=== PATIENT | male | born 1930 | race Caucasian/White ===

== ENCOUNTER 2016-12-10 13:14 | Emergency (ER) | payer OTHER ==
--- NOTE | 2016-12-10 15:50 | DIAGNOSTIC IMAGING REPORT ---
PROCEDURE: XR ABDOMEN 1 VIEW UPRIGHT INDICATION: CONSTIPATION TECHNIQUE: Single view upright abdomen. COMPARISON: None. FINDINGS: No obvious free air. Increased stool throughout the colon. No dilated small bowel loops visible. Surgical clips in the gallbladder fossa. No suspicious mass effect. Intact osseous structures. Clear lung bases. IMPRESSION: 1. Retained stool. 2. Post cholecystectomy.
--- NOTE | 2016-12-10 16:16 | ED ORDER SUMMARY ---
..... Patient: MALATHI LOGAN OrderSheet [facility] VisitID: [id number] [place] [address] 86y, M Registration Date/Time: 12/10/2016 ORDER SHEET Weight: 104.3 kg (stated) Allergies: No Known Drug Allergy GENERAL ORDERS: EKG - ER Stat (13:35 12/10/2016 ASchmuck per protocol) (13:42 PWeiler ER Tech1) CBC w Diff Urgent (13:49 12/10/2016 ASchmuck per protocol) (14:03 PWeiler ER Tech1) CMP Urgent (13:49 12/10/2016 ASchmuck per protocol) (14:03 PWeiler ER Tech1) Abdomen 1V Upright Urgent (14:02 12/10/2016 HBivens A.R.N.P.) (Ack 14:04 PWeiler ER Tech1) (15:01 ASchmuck) Amylase Urgent (14:02 12/10/2016 HBivens A.R.N.P.) (14:03 PWeiler ER Tech1) Lipase Urgent (14:02 12/10/2016 HBivens A.R.N.P.) (14:03 PWeiler ER Tech1) UA-Culture if indicated Urgent (14:02 12/10/2016 HBivens A.R.N.P.) (Ack 14:04 PWeiler ER Tech1) (14:34 PWeiler ER Tech1) MEDICATION ORDERS: IV FLUIDS: IV NS : initial bolus 1000 mL (1000 mL/hr), then none - (NOW) (14:01 12/10/2016 HBivens A.R.N.P.) (14:15 ASchmuck) Toradol IV 30 mg (NOW) (14:02 12/10/2016 HBivens A.R.N.P.) (14:15 ASchmuck) Zofran IV 4 mg (NOW) (14:02 12/10/2016 HBivens A.R.N.P.) (14:15 ASchmuck) IV Saline Lock (14:02 12/10/2016 HBivens A.R.N.P.) (14:14 ASchmuck) Dilaudid IV 1 mg (HIGH ALERT MEDICATION, NOW) (14:28 12/10/2016 HBivens A.R.N.P.) (Ack 14:29 [facility] (14:34 [facility]) ORDER SHEET NOTES: [Electronically signed by Camille Corcoran (18:20 12/10/2016)] [Electronically signed by Lia Chris A.R.N.P. (18:52 12/10/2016)] [Electronically locked/signed by Camille Corcoran (18:20 12/10/2016)]
--- NOTE | 2016-12-10 16:16 | ED NURSING NOTES ---
Clinical Report - Nurses [facility] [address] [place] [address] 12/10/2016 13:16 Patient: MALATHI LOGAN TRIAGE Triage time 13:15 Dec 10 2016. Acuity: LEVEL 3. Chief Complaint: ABDOMINAL PAIN, NAUSEA and VOMITING and CONSTIPATION. 13:12/10/16. Alert. No acute distress. SEPSIS SCREEN: Sepsis Screen. Negative (no infection suspected/documented). JANA COMA SCORE: Jana Coma Scale: 15- eyes open spontaneously (4); best verbal response- oriented x 4 (5); best motor response- obeys commands (6). --13:26 Camille Corcoran 13:12/10/16. BP: 183/76. HR: 53. RR: 18. O2 saturation: 96%. Temp: 97.4 F. Pain level now 8/10. --13:26 Camille Corcoran. Weight: 104.3 kg stated. Height/Length: 66 inches Per Patient. BMI: 37.1. --13:23 Camille Corcoran. Medications Sodium Bicarbonate Oral (Tablet 650 mg) 2 tablets, daily. --13:36 Camille Corcoran MetFORMIN HCl Oral 500 mg, 2x a day. --13:44 Camille Corcoran Lisinopril Oral 20 mg, daily. --13:44 Camille Corcoran Vitamin D3 Oral. --13:44 Camille Corcoran Rosuvastatin Calcium Oral 20 mg. --13:45 Camille Corcoran AmLODIPine Besylate Oral 5 mg. --13:45 Camille Corcoran Stool Softener Oral. --13:45 Camille Corcoran Aspir-81 Oral 1/2 tab. --13:45 Camille Corcoran Glucosamine Chondroitin Plus Oral. --13:46 Camille Corcoran Centrum Silver Ultra Mens Oral. --13:46 Camille Corcoran. Medication/allergy information source: the patient. --13:26 Camille Corcoran. Allergies No Known Drug Allergy. --13:46 Camille Corcoran. History Arrived by EMS. Historian: EMS. Unaccompanied. This started today. The patient has had nausea, vomiting, constipation and abdominal pain. No diarrhea or fever. Last oral intake by patient was breakfast (Pancakes). 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 EMS treatment WINCH TRUCK OPERATOR verbally communicated. Finger stick glucose performed (119). BP: 152/80. HR: 55. RR: 18. O2 saturation: 95 % room air. ( Pt reports abd pain-2 days since last BM. Clear bile emesis en route. Diabetic. Sudden onset of RLQ pain.). PAST MEDICAL HX: Immunizations: up-to-date. SOCIAL HX: Never smoker. No alcohol use or drug use. No recent travel. No known contact with a sick individual. FALL RISK ASSESSMENT: Fall risk assessment completed. No fall risk identified. NUTRITIONAL RISK ASSESSMENT: The nutritional risk assessment revealed no deficiencies. FUNCTIONAL ASSESSMENT: Functional assessment: no impairments noted. LEARNING NEEDS ASSESSMENT: The learning needs assessment revealed no barriers. SKIN INTEGRITY ASSESSMENT: Skin integrity risk assessment completed. No skin integrity risk identified. --13:26 Camille Corcoran. PROBLEMS: Hypercholesterolemia. Diabetes Mellitus. --13:47 Camille Corcoran. ADDITIONAL SURGERIES: 6 way bypass. --13:47 Camille Corcoran Appendectomy. Colon resection. Gallbladder Surgery. --13:47 Camille Corcoran. Assessment The patient states feels the same. --13:26 Camille Corcoran. Interventions ID band on patient. --13:26 Camille Corcoran. PHYSICAL ASSESSMENT 13:12/10/16. To room via stretcher. Patient gowned. GENERAL / NEURO / PSYCH: Alert. Oriented X 4. Appears in pain. HEENT: Mucous membranes are pink. RESPIRATORY: Respirations not labored. CVS: Capillary refill less than 2 seconds. GI / : The patient has had nausea. Abdominal tenderness in the right lower quadrant. No rebound tenderness or guarding. SKIN: Skin is warm and dry. --13:26 Camille Corcoran. NURSING PROGRESS NOTES 13:12/10/16. The plan of care for this patient has been created. quality assurance monitor, pulse oximeter and NIBP monitor placed on patient; quality assurance monitor- Lead II and V5; monitor alarms on. Patient gowned. Head of bed elevated. Reassurance given. Two patient identifiers checked. Call light placed in reach. Side rails up x 1. Bed placed in lowest position. Brakes of bed on. Patient ready for evaluation- chart flagged and ED physician and OFFICE MOVER notified. --13:26 Camille Corcoran 13:30 12/10/16. ( Blankets provided to patient.). --14:34 Camille Corcoran 13:45 12/10/2016 Site #1 started via IV in the right antecubital space with an 20g angiocath, with aseptic technique and good blood return; one attempt. Saline lock flushed with 10 mL saline. --13:46 Blayne Chan R.N. 14:10 12/10/2016 Started bag #1 1000 mL IV Fluids IV NS (Saline); at 1000 mL/hr over 1 hour(s) via site #1 via IV pump. Allergies verified and confirmed 5 rights. IV patency established. IV site checked: no pain, redness, or swelling. IV flushed thoroughly pre- and post-medication administration. --14:15 Camille Corcoran 14:12 12/10/2016 Toradol IVP 30 mg given over 1 minute(s) via site #1. Allergies verified and confirmed 5 rights. IV patency established. IV site checked: no pain, redness, or swelling. IV flushed thoroughly pre- and post-medication administration. IVP given by RN. --14:15 Camille Corcoran 14:14 12/10/2016 Zofran (Ondansetron HCl) IVP 4 mg given over 30 second(s) via site #1. Allergies verified and confirmed 5 rights. IV patency established. IV site checked: no pain, redness, or swelling. IV flushed thoroughly pre- and post-medication administration. IVP given by RN. --14:15 Camille Corcoran 14:34 12/10/2016 Dilaudid (HYDROmorphone HCl PF) IVP 1 mg given over 30 second(s) via site #1. Allergies verified, confirmed 5 rights and sedative warning given to the patient. IV patency established. IV site checked: no pain, redness, or swelling. IV flushed thoroughly pre- and post-medication administration. IVP given by RN. --14:34 Camille Corcoran 14:34 12/10/16. Patient transported to radiology by stretcher with tech. --14:34 Camille Corcoran 14:20 12/10/16. BP: 183/68. HR: 58. RR: 17. O2 saturation: 97% on room air. Pain level now: 12/30. --14:37 Camille Corcoran 13:40 12/10/2016 Site #2 started via IV in the left hand with an 22g angiocath, with aseptic technique and good blood return; one attempt. Saline lock flushed with 10 mL saline. --16:47 Camille Corcoran 15:10 12/10/2016 IV Fluids IV NS Discontinued: bag #1 infused. Total amount infused: 1000 mL. IV patency established. IV site checked: no pain, redness, or swelling. IV flushed thoroughly. --16:46 Camille Corcoran 16:46 12/10/2016 IV Saline Lock Drip IV Discontinued. Total amount infused: 0 mL. --16:46 Camille Corcoran 16:47 12/10/2016 Site #1 removed upon discharge. Catheter intact. Pressure dressing applied. --16:47 Camille Corcoran 16:47 12/10/2016 Site #2 removed upon discharge. Catheter intact. Pressure dressing applied. --16:47 Camille Corcoran. DISPOSITION / DISCHARGE 16:23 12/10/16. Condition at departure: improved. The goals identified in the patient's plan of care were met. FALL RISK ASSESSMENT: Fall risk assessment completed. No fall risk identified. --16:23 Camille Corcoran 16:22 12/10/16. BP: 162/95. HR: 56. RR: 15. O2 saturation: 95% on room air. Pain level now: 06/01. --16:23 Camille Corcoran 16:48 12/10/16. Departure time: 16:48 Dec 10 2016. No learning barriers present. Discharge instructions provided and reviewed with the patient. Reviewed warnings (Patient verbalized awareness of warning s/sx listed in dc paperwork.). Reviewed medication(s). Prescription(s) given to the patient (Zofran, bentyl, miralax). Treatments reviewed. Reviewed referral to a primary care physician for followup. Patient verbalized understanding. Written instructions provided in Nepali. The patient was discharged by the nurse practitioner. He was discharged home and unaccompanied at time of discharge Patient was given phone number for taxi service. He left the Emergency Department ambulatory and via private vehicle. --16:48 Camille Corcoran. Locked/Released at 12/10/2016 18:20 by Camille Corcoran,
--- NOTE | 2016-12-10 16:16 | ED CLINICAL REPORT ---
Clinical Report - Physicians/Mid Levels [facility] [address] [place] [address] 12/10/2016 13:16 Patient: MALATHI LOGAN Time Seen: 13:36; initial patient contact, initial documentation, patient care assumed. Arrived- By ambulance. Historian- patient. HISTORY OF PRESENT ILLNESS Chief Complaint: ABDOMINAL PAIN. At its maximum, severity described as moderate. When seen in the E.D., severity described as moderate. Modifying factors. Not worsened by anything. Not relieved by anything. It is described as "pain" and diffuse. This started today and is still present. The patient has had nausea and vomiting. The vomiting has occurred twice. No loss of appetite or diarrhea. (says he feels constipated, and he bought some drink pharmacist recommended, instructed to drink half, wait 6 hrs, no relief, drink 2nd half, drank 1st half around 1100, no bm since). No recent travel. Similar symptoms previously: None. Recent medical care: Not recently seen/assessed. REVIEW OF SYSTEMS The patient has had constipation. No black stools, hematemesis, difficulty with urination, pain with urination or urinary frequency. No bloody stools, fever, chest pain or difficulty breathing. Last bowel movement: 2 days ago. All systems otherwise negative, except as recorded above. PAST HISTORY See nurses notes. PROBLEMS: Hypercholesterolemia. Diabetes Mellitus. --13:47 Camille Corcoran. ADDITIONAL SURGERIES: 6 way bypass. --13:47 Camille Corcoran Appendectomy. Colon resection. Gallbladder Surgery. --13:47 Camille Corcoran. SOCIAL HISTORY Never smoker. No alcohol use or drug use. No recent travel. Is a local resident. FAMILY HISTORY Negative. ADDITIONAL NOTES The nursing notes have been reviewed with agreement regarding the chief complaint, HPI, ROS, PMH and patient medications and allergies. PHYSICAL EXAM Vital Signs: 12/10/2016 13:26 BP: 183/76. HR: 53. RR: 18. O2 saturation: 96%. Temp: 97.4 F. Have been reviewed as normal and appear to be correct. Appearance: Alert. Oriented X3. No acute distress. Eyes: Pupils equal, round and reactive to light. Eyes normal inspection. Neck: Normal inspection. Neck supple. CVS: Normal heart rate and rhythm. Heart sounds normal. Pulses normal. Respiratory: No respiratory distress. Breath sounds normal. Chest nontender. Abdomen: Soft and nontender. Bowel sounds normal. No organomegaly. No mass. Mildly obese. Back: Normal inspection. Rectal: Rectal exam normal and nontender. Stool heme negative; hemoccult quality improvement specialist check passed. (POC test reference range: negative). ([facility] for rectal). Skin: Skin warm and dry. Normal skin color. No rash. Normal skin turgor. Extremities: Extremities exhibit normal ROM. No lower extremity edema. Neuro: Oriented X 3. No motor deficit. No sensory deficit. LABS, X-RAYS, AND EKG X-Rays: KUB. KUB: (IMPRESSION: 1. Retained stool. 2. Post cholecystectomy. Electronically Final signed by:Stacie Botello MD 12/10/2016 3:50:12 PM). The X-rays were interpreted by the radiologist. Laboratory Tests: UA-Culture if indicated: (HUYEN: 12/10/2016 14:25) ( MsgRcvd 12/10/2016 14:56) Final results Test Result Flag Units (Reference) URINE COLOR YELLOW URINE APPEARANCE CLEAR URINE GLUCOSE NEGATIVE (NEGATIVE) URINE BILIRUBIN NEGATIVE (NEGATIVE) URINE KETONE NEGATIVE (NEGATIVE) URINE SPECIFIC GRAVITY 1.020 (1.010-1.030) URINE PH 7.0 (5.0-8.0) URINE PROTEIN 1+ (NEGATIVE) URINE UROBILINOGEN 0.2 EU/dL (0.2-1.0) URINE NITRITE NEGATIVE (NEGATIVE) URINE BLOOD 3+ (NEGATIVE) URINE LEUK ESTERASE NEGATIVE (NEGATIVE) URINE RBC 10-25 rbc/hpf (0-1) URINE WBC 0-1 wbc/hpf (0-1) URINE EPITHELIAL CELLS RARE EPI/hpf (0-5) URINE BACTERIA NONE SEEN (NONE SEEN) URINE COMMENT CULT NOT INDICATED URINE CULTURES ARE SET-UP BASED ON THE FOLLOWING CRITERIA:POSITIVE NITRITEPOSITIVE LEUKOCYTE ESTERASEGREATER THAN 10 WHITE BLOOD CELLSMODERATE (2+) OR GREATER BACTERIA CBC w Diff: (HUYEN: 12/10/2016 14:00) ( [facility] [place] [facility]) Final results Test Result Flag Units (Reference) WHITE BLOOD COUNT 8.2 K/uL (4.5-11.5) RED BLOOD COUNT 5.67 M/uL (4.50-5.90) HEMOGLOBIN 16.4 gm/dL (13.5-17.5) HEMATOCRIT 49.0 % (41.0-53.0) MEAN CELL VOLUME 86 fL (80-100) MEAN CORPUSCULAR HGB 29 pg (26-34) MEAN CORPUSCULAR HGB CONC 33 g/dL (31-37) RED CELL DISTRIBUTION WIDTH 15.2 H % (11.6-14.8) PLATELET COUNT 165 K/uL (150-400) NEUTROPHIL % 82.2 H % (50-75) LYMPH % 12.3 L % (25-40) MONO % 4.0 % (3-14) EOSINOPHIL % 1.2 % (0-4) BASOPHIL % 0.3 % (0-2) CMP: (HUYEN: 12/10/2016 13:49) ( MsgRcvd 12/10/2016 14:23) Final results Test Result Flag Units (Reference) GLUCOSE 132 H mg/dL (70-110) BUN 22 H mg/dL (7-18) CREATININE 1.2 mg/dL (0.6-1.3) Estimated GFR >60 mL/min Estimated GFR- >60 mL/min Note: Persistent reduction over 3 months in eGFR<60 mL/min/1.73 m2 defines CKD. Patients with eGFR values>=60 mL/min/1.73 m2 may also have CKD if evidence ofpersistent proteinuria. Additional information may be foundat www.[email or web address].org. SODIUM 138 mmol/L (136-145) POTASSIUM 4.4 mmol/L (3.5-5.1) CHLORIDE 103 mmol/L (98-107) CARBON DIOXIDE 25 mmol/L (21-32) CALCIUM 9.2 mg/dL (8.5-10.1) TOTAL PROTEIN 7.2 g/dL (6.4-8.2) ALBUMIN 3.9 g/dL (3.3-5.0) BILIRUBIN, TOTAL 0.8 mg/dL (0.0-1.0) ALKALINE PHOSPHATASE 56 U/L (46-116) AST (SGOT) 40 H U/L (15-37) ALT (SGPT) 52 U/L (12-78) LIPASE 313 U/L (73-393) AMYLASE 86 U/L (25-115) . Bedside Tests: Glucose normal - 119 (performed by EMS). PROGRESS AND PROCEDURES Course of Care: 12/10/2016 14:20 BP: 183/68. HR: 58. RR: 17. O2 saturation: 97%. Pain level now: 12/30. Vital Signs: have been reviewed as normal and appear to be correct. Patient counseled in person regarding the patient's stable condition, test results and diagnosis. Differential Diagnosis: I considered gastritis, gastroenteritis, peptic ulcer disease, gastroesophageal reflux disease, acute appendicitis, diverticulitis, colon cancer, ulcerative colitis, Crohn's disease, intussusception, small bowel obstruction, obstipation, biliary colic, cholecystitis, cholelithiasis, hepatitis, pancreatitis, common bile duct obstruction and viral syndrome as a possible cause of abdominal pain in this patient. This is a partial list of diagnoses considered. Above considerations are based on history, physical exam, reassessment, laboratory data, X-Ray data and other information. Differential diagnosis was discussed with patient. Disposition: Discharged home in good and improved condition (16:16). Condition: good and stable. CLINICAL IMPRESSION Constipation Acute generalized abdominal pain of undetermined cause. Intractable vomiting with nausea. No dehydration or volume depletion. Not bilious. INSTRUCTIONS Drink plenty of fluids. Warnings: GENERAL WARNINGS: Return or contact your physician immediately if your condition worsens or changes unexpectedly, if not improving as expected, or if other problems arise. SPECIFICALLY, return if you develop pain in the abdomen or pelvis, fever, the inability to keep fluids down, blood in vomitus, blood in diarrhea, fainting or lightheadedness. Prescription Medications: Zofran 4 mg: Take 1 orally every six hours as needed for nausea/vomiting. Dispense ten (10). No refills. Substitution is permissible. Bentyl 20 mg tablets: take 1 orally every 6 hours as needed. Dispense thirty (30). No refills. Substitution is permissible. Miralax: take 1 measuring cupful supplied (1 heaping tablespoon) mixed in 8 ounces liquid daily as needed for constipation. Dispense fourteen (14) ounce bottle. No refill. Substitution is permissible. Follow-up: Follow up with your doctor in about two days even if well. Call for an appointment. Summary of care provided to patient. Understanding of the discharge instructions verbalized by patient. (Electronically signed by Lia Chris A.R.N.P. 12/10/2016 18:52)
--- NOTE | 2016-12-10 16:16 | ED NURSING NOTES ---
Clinical Report - Nurses [facility] [address] [place] [address] 12/10/2016 13:16 Patient: MALATHI LOGAN TRIAGE Triage time 13:15 Dec 10 2016. Acuity: LEVEL 3. Chief Complaint: ABDOMINAL PAIN, NAUSEA and VOMITING and CONSTIPATION. 13:12/10/16. Alert. No acute distress. SEPSIS SCREEN: Sepsis Screen. Negative (no infection suspected/documented). JANA COMA SCORE: Jana Coma Scale: 15- eyes open spontaneously (4); best verbal response- oriented x 4 (5); best motor response- obeys commands (6). --13:26 Camille Corcoran 13:12/10/16. BP: 183/76. HR: 53. RR: 18. O2 saturation: 96%. Temp: 97.4 F. Pain level now 8/10. --13:26 Camille Corcoran. Weight: 104.3 kg stated. Height/Length: 66 inches Per Patient. BMI: 37.1. --13:23 Camille Corcoran. Medications Sodium Bicarbonate Oral (Tablet 650 mg) 2 tablets, daily. --13:36 Camille Corcoran MetFORMIN HCl Oral 500 mg, 2x a day. --13:44 Camille Corcoran Lisinopril Oral 20 mg, daily. --13:44 Camille Corcoran Vitamin D3 Oral. --13:44 Camille Corcoran Rosuvastatin Calcium Oral 20 mg. --13:45 Camille Corcoran AmLODIPine Besylate Oral 5 mg. --13:45 Camille Corcoran Stool Softener Oral. --13:45 Camille Corcoran Aspir-81 Oral 1/2 tab. --13:45 Camille Corcoran Glucosamine Chondroitin Plus Oral. --13:46 Camille Corcoran Centrum Silver Ultra Mens Oral. --13:46 Camille Corcoran. Medication/allergy information source: the patient. --13:26 Camille Corcoran. Allergies No Known Drug Allergy. --13:46 Camille Corcoran. History Arrived by EMS. Historian: EMS. Unaccompanied. This started today. The patient has had nausea, vomiting, constipation and abdominal pain. No diarrhea or fever. Last oral intake by patient was breakfast (Pancakes). Treatment QUALITY ENG: See EMS report. EMS treatment QUALITY ENG verbally communicated. Finger stick glucose performed (119). BP: 152/80. HR: 55. RR: 18. O2 saturation: 95 % room air. ( Pt reports abd pain-2 days since last BM. Clear bile emesis en route. Diabetic. Sudden onset of RLQ pain.). PAST MEDICAL HX: Immunizations: up-to-date. SOCIAL HX: Never smoker. No alcohol use or drug use. No recent travel. No known contact with a sick individual. FALL RISK ASSESSMENT: Fall risk assessment completed. No fall risk identified. NUTRITIONAL RISK ASSESSMENT: The nutritional risk assessment revealed no deficiencies. FUNCTIONAL ASSESSMENT: Functional assessment: no impairments noted. LEARNING NEEDS ASSESSMENT: The learning needs assessment revealed no barriers. SKIN INTEGRITY ASSESSMENT: Skin integrity risk assessment completed. No skin integrity risk identified. --13:26 Camille Corcoran. PROBLEMS: Hypercholesterolemia. Diabetes Mellitus. --13:47 Camille Corcoran. ADDITIONAL SURGERIES: 6 way bypass. --13:47 Camille Corcoran Appendectomy. Colon resection. Gallbladder Surgery. --13:47 Camille Corcoran. Assessment The patient states feels the same. --13:26 Camille Corcoran. Interventions ID band on patient. --13:26 Camille Corcoran. PHYSICAL ASSESSMENT 13:12/10/16. To room via stretcher. Patient gowned. GENERAL / NEURO / PSYCH: Alert. Oriented X 4. Appears in pain. HEENT: Mucous membranes are pink. RESPIRATORY: Respirations not labored. CVS: Capillary refill less than 2 seconds. GI / : The patient has had nausea. Abdominal tenderness in the right lower quadrant. No rebound tenderness or guarding. SKIN: Skin is warm and dry. --13:26 Camille Corcoran. NURSING PROGRESS NOTES 13:12/10/16. The plan of care for this patient has been created. air sampling and monitoring, pulse oximeter and NIBP monitor placed on patient; patient monitor- Lead II and V5; monitor alarms on. Patient gowned. Head of bed elevated. Reassurance given. Two patient identifiers checked. Call light placed in reach. Side rails up x 1. Bed placed in lowest position. Brakes of bed on. Patient ready for evaluation- chart flagged and ED physician and GRAVITY METER OPERATOR notified. --13:26 Camille Corcoran 13:30 12/10/16. ( Blankets provided to patient.). --14:34 Camille Corcoran 13:45 12/10/2016 Site #1 started via IV in the right antecubital space with an 20g angiocath, with aseptic technique and good blood return; one attempt. Saline lock flushed with 10 mL saline. --13:46 Blayne Chan R.N. 14:10 12/10/2016 Started bag #1 1000 mL IV Fluids IV NS (Saline); at 1000 mL/hr over 1 hour(s) via site #1 via IV pump. Allergies verified and confirmed 5 rights. IV patency established. IV site checked: no pain, redness, or swelling. IV flushed thoroughly pre- and post-medication administration. --14:15 Camille Corcoran 14:12 12/10/2016 Toradol IVP 30 mg given over 1 minute(s) via site #1. Allergies verified and confirmed 5 rights. IV patency established. IV site checked: no pain, redness, or swelling. IV flushed thoroughly pre- and post-medication administration. IVP given by RN. --14:15 Camille Corcoran 14:14 12/10/2016 Zofran (Ondansetron HCl) IVP 4 mg given over 30 second(s) via site #1. Allergies verified and confirmed 5 rights. IV patency established. IV site checked: no pain, redness, or swelling. IV flushed thoroughly pre- and post-medication administration. IVP given by RN. --14:15 Camille Corcoran 14:34 12/10/2016 Dilaudid (HYDROmorphone HCl PF) IVP 1 mg given over 30 second(s) via site #1. Allergies verified, confirmed 5 rights and sedative warning given to the patient. IV patency established. IV site checked: no pain, redness, or swelling. IV flushed thoroughly pre- and post-medication administration. IVP given by RN. --14:34 Camille Corcoran 14:34 12/10/16. Patient transported to radiology by stretcher with tech. --14:34 Camille Corcoran 14:20 12/10/16. BP: 183/68. HR: 58. RR: 17. O2 saturation: 97% on room air. Pain level now: 12/30. --14:37 Camille Corcoran 13:40 12/10/2016 Site #2 started via IV in the left hand with an 22g angiocath, with aseptic technique and good blood return; one attempt. Saline lock flushed with 10 mL saline. --16:47 Camille Corcoran 15:10 12/10/2016 IV Fluids IV NS Discontinued: bag #1 infused. Total amount infused: 1000 mL. IV patency established. IV site checked: no pain, redness, or swelling. IV flushed thoroughly. --16:46 Camille Corcoran 16:46 12/10/2016 IV Saline Lock Drip IV Discontinued. Total amount infused: 0 mL. --16:46 Camille Corcoran 16:47 12/10/2016 Site #1 removed upon discharge. Catheter intact. Pressure dressing applied. --16:47 Camille Corcoran 16:47 12/10/2016 Site #2 removed upon discharge. Catheter intact. Pressure dressing applied. --16:47 Camille Corcoran. DISPOSITION / DISCHARGE 16:23 12/10/16. Condition at departure: improved. The goals identified in the patient's plan of care were met. FALL RISK ASSESSMENT: Fall risk assessment completed. No fall risk identified. --16:23 Camille Corcoran 16:22 12/10/16. BP: 162/95. HR: 56. RR: 15. O2 saturation: 95% on room air. Pain level now: 06/01. --16:23 Camille Corcoran 16:48 12/10/16. Departure time: 16:48 Dec 10 2016. No learning barriers present. Discharge instructions provided and reviewed with the patient. Reviewed warnings (Patient verbalized awareness of warning s/sx listed in dc paperwork.). Reviewed medication(s). Prescription(s) given to the patient (Zofran, bentyl, miralax). Treatments reviewed. Reviewed referral to a primary care physician for followup. Patient verbalized understanding. Written instructions provided in Maltese. The patient was discharged by the nurse practitioner. He was discharged home and unaccompanied at time of discharge Patient was given phone number for taxi service. He left the Emergency Department ambulatory and via private vehicle. --16:48 Camille Corcoran. Locked/Released at 12/10/2016 18:20 by Camille Corcoran,
--- NOTE | 2016-12-10 16:16 | ED ORDER SUMMARY ---
..... Patient: MALATHI LOGAN OrderSheet [facility] VisitID: [id number] [place] [address] 86y, M Registration Date/Time: 12/10/2016 ORDER SHEET Weight: 104.3 kg (stated) Allergies: No Known Drug Allergy GENERAL ORDERS: EKG - ER Stat (13:35 12/10/2016 ASchmuck per protocol) (13:42 PWeiler ER Tech1) CBC w Diff Urgent (13:49 12/10/2016 ASchmuck per protocol) (14:03 PWeiler ER Tech1) CMP Urgent (13:49 12/10/2016 ASchmuck per protocol) (14:03 PWeiler ER Tech1) Abdomen 1V Upright Urgent (14:02 12/10/2016 HBivens A.R.N.P.) (Ack 14:04 PWeiler ER Tech1) (15:01 ASchmuck) Amylase Urgent (14:02 12/10/2016 HBivens A.R.N.P.) (14:03 PWeiler ER Tech1) Lipase Urgent (14:02 12/10/2016 HBivens A.R.N.P.) (14:03 PWeiler ER Tech1) UA-Culture if indicated Urgent (14:02 12/10/2016 HBivens A.R.N.P.) (Ack 14:04 PWeiler ER Tech1) (14:34 PWeiler ER Tech1) MEDICATION ORDERS: IV FLUIDS: IV NS : initial bolus 1000 mL (1000 mL/hr), then none - (NOW) (14:01 12/10/2016 HBivens A.R.N.P.) (14:15 ASchmuck) Toradol IV 30 mg (NOW) (14:02 12/10/2016 HBivens A.R.N.P.) (14:15 ASchmuck) Zofran IV 4 mg (NOW) (14:02 12/10/2016 HBivens A.R.N.P.) (14:15 ASchmuck) IV Saline Lock (14:02 12/10/2016 HBivens A.R.N.P.) (14:14 ASchmuck) Dilaudid IV 1 mg (HIGH ALERT MEDICATION, NOW) (14:28 12/10/2016 HBivens A.R.N.P.) (Ack 14:[facility] (14:34 [facility] ORDER SHEET NOTES: [Electronically signed by Camille Corcoran (18:20 12/10/2016)] [Electronically signed by Lia Chris A.R.N.P. (18:52 12/10/2016)] [Electronically locked/signed by Camille Corcoran (18:20 12/10/2016)]
--- NOTE | 2016-12-10 18:52 | ED DISCHARGE INSTRUCTIONS ---
Patient: MALATHI LOGAN General Instructions [facility] VisitID: [id number] [place] [address] 86y, M Registration Date/Time: 12/10/2016 Constipation Acute generalized abdominal pain of undetermined cause. Intractable vomiting with nausea. No dehydration or volume depletion. Not bilious. INSTRUCTIONS Drink plenty of fluids. Warnings: GENERAL WARNINGS: Return or contact your physician immediately if your condition worsens or changes unexpectedly, if not improving as expected, or if other problems arise. SPECIFICALLY, return if you develop pain in the abdomen or pelvis, fever, the inability to keep fluids down, blood in vomitus, blood in diarrhea, fainting or lightheadedness. Prescription Medications: Zofran 4 mg: Take 1 orally every six hours as needed for nausea/vomiting. Dispense ten (10). No refills. Substitution is permissible. Bentyl 20 mg tablets: take 1 orally every 6 hours as needed. Dispense thirty (30). No refills. Substitution is permissible. Miralax: take 1 measuring cupful supplied (1 heaping tablespoon) mixed in 8 ounces liquid daily as needed for constipation. Dispense fourteen (14) ounce bottle. No refill. Substitution is permissible. Follow-up: Follow up with your doctor in about two days even if well. Call for an appointment. Summary of care provided to patient. Understanding of the discharge instructions verbalized by patient. ADDITIONAL INFORMATION Abdominal Pain,Uncertain Cause [Male] Based on your visit today, the exact cause of your abdominalpain is not clear. Your exam and tests do not indicate a dangerous cause at this time. However, the signs of a serious problem may take more time to appear. Although your evaluation was reassuring today, sometimes early in the course of many conditions, exam and lab tests can appear normal. Therefore, it is important for you to watch for any new symptoms or worsening of your condition. Causes It may not be obvious what caused your symptoms. Pay attention to things that do seem to make your symptoms worse or better and discuss this with your doctor when you follow up. Diagnosis The evaluation of abdominal pain in the emergency department may onlyrequire an exam by the doctor or it may include blood, urine or imaging studies, depending on many factors. Sometimes exams and tests can identify a cause but in many cases, a clear cause is not found. Further testing at follow up visits may help to suggest a clear diagnosis. Home Care Rest as much as possible until your next exam. Try to avoid any medications (unless otherwise directed by your doctor), foods, activities, or other factors that you may have contributed to your symptoms. Try to eat foods that you know that you have tolerated well in the past. Certain diets may be recommended for some conditions that cause abdominal pain. However, since the cause of your symptoms may not be clear, discuss your diet more with your primary care provider or specialist for further recommendations. Eating several small meals per day as opposed to 2 or 3 larger meals may help. Monitor closely for anything that may make your symptoms worse or better. Pay close attention to symptoms below that may indicate worsening of your condition. Follow Up and Precautions See your doctoras instructed or sooneror if your symptoms are not improving.In some cases, you may need more testing. When to Seek Medical Attention Contact your doctor or see medical attention ifany of the following occur: Pain is becoming worse You are unable to take your medications due to excessive vomiting Swelling of the abdomen Fever of 100.4F (38C) or higher, or as directed by your health care provider Blood in vomit or bowel movements (dark red or black color) Jaundice (yellow color of eyes and skin) New onset of weakness, dizziness or fainting New onset of chest, arm, back, neck or jaw pain Abdominal Pain, Possible Appendicitis, Repeat Exam, Male Based on your visit today, the exact cause of your abdominal (stomach) pain is not certain. However, you do have some of the early signs of appendicitis. Early in an appendix infection the symptoms can be similar to a simple "stomach ache" or "stomach flu". Therefore, the diagnosis can be hard to make.Since an appendix infection is a serious condition, it is important to know if this is the cause of your symptoms. WAITING for more time to pass and repeating the exam is the best way to find out whether you have appendicitis. Within the next 12-24 hours the cause of your stomach pain should become clear. It is important for you to watch for any new symptoms or worsening of your condition.(See below). Home Care: Rest until your next exam. No strenuous activities. Eat a diet low in fiber (called a low-residue diet). Foods allowed include refined breads, white rice, fruit and vegetable juices without pulp, tender meats. These foods will pass more easily through the intestine. Avoid whole-grain foods, whole fruits and vegetables, meats, seeds and nuts, fried or fatty foods, dairy, alcohol and spicy foods until your symptoms go away. In some cases, you may be asked not to eat or drink anything until you are re-examined. Return for another exam exactly as directed. Follow Up with your doctor or this facility as directed. [NOTE: If you had an X-ray, CT scan, ultrasound, or EKG (cardiogram), it will be reviewed by a specialist. You will be notified of any new findings that may affect your care.] Return Promptly before your next appointment or contact your doctor if any of the following occur: Pain gets worse or moves to the right lower abdomen New or worsening vomiting or diarrhea Swelling of the abdomen Unable to pass stool for more than three days New fever over 100.4 F (38.0 C), or rising fever Blood in vomit or bowel movements (dark red or black color) Weakness, dizziness or fainting Vomiting [6Yr-Adult] Vomiting is a common symptom that may be due to different causes. These include gastroenteritis ("stomach flu"), food poisoning and gastritis. There are other more serious causes of vomiting which may be hard to diagnose early in the illness. Therefore, it is important to watch for the warning signs listed below. The main danger from repeated vomiting is dehydration. This is due to excess loss of water and minerals from the body. When this occurs, body fluids must be replaced. Home Care: If symptoms are severe, rest at home for the next 24 hours. You may use acetaminophen (Tylenol) or ibuprofen (Motrin, Advil) to control fever, unless another medicine was prescribed. [NOTE : If you have chronic liver or kidney disease or ever had a stomach ulcer or GI bleeding, talk with your doctor before using these medicines.] (Aspirin should never be used in anyone under 18 years of age who is ill with a fever. It may cause severe liver damage.) Avoid tobacco and alcohol use, which may worsen your symptoms. If medicines for vomiting were prescribed, take as directed. Once vomiting stops, then follow these guidelines: During The First 12-24 Hours follow the diet below: FRUIT JUICES: Apple, grape juice, clear fruit drinks, and electrolyte replacement drinks. BEVERAGES: Soft drinks without caffeine; mineral water (plain or flavored), decaffeinated tea and coffee. SOUPS: Clear broth, consomm and bouillon DESSERTS: Plain gelatin, popsicles and fruit juice bars. As you feel better, you may add 6-8 ounces of yogurt per day. During The Next 24 Hours you may add the following to the above: Hot cereal, plain toast, bread, rolls, crackers Plain noodles, rice, mashed potatoes, chicken noodle or rice soup Unsweetened canned fruit (avoid pineapple), bananas Limit caffeine and chocolate. No spices or seasonings except salt. During The Next 24 Hours Gradually resume a normal diet, as you feel better and your symptoms lessen. Follow Up with your doctor as advised if you are not improving over the next 2-3 days. Get Prompt Medical Attention if any of the following occur: Constant right-sided lower abdominal pain or increasing general abdominal pain Continued vomiting (unable to keep liquids down) for 24 hours Frequent diarrhea (more than 5 times a day); blood (red or black color) or mucus in diarrhea Reduced urine output or extreme thirst Weakness, dizziness or fainting Unusually drowsy or confused Fever of 100.4F (38C) oral or higher, not better with fever medication Yellow color of the eyes or skin Constipation (Adult) Constipation is bowel movements that are less frequent than usual. Stools often become very hard and difficult to pass. This may lead to abdominal pain and bloating. It may also cause painful bowel movements. Constipation may be due to a diet thats low in fiber. Some medications, especially pain medications, can also cause it. Constipation may be treated with enemas, suppositories, laxatives or stool softeners. Your doctor will advise you which will work best for you. Follow the advice below to help avoid this problem in the future. Home Care Medication: Take any medicines as directed. Some laxatives are safe only for occasional use. Others can be taken on a regular basis. Talk to your doctor or pharmacist if you have questions. General Care: Prescription pain medications can cause constipation. If you are prescribed pain medications, ask the doctor whether you should also take a stool softener. A diet high in fiber with plenty of fluids helps to maintain regular, soft bowel movements. The following foods are good sources of dietary fiber: Cereals and breads: Whole grain cereal with bran, oatmeal, rolled oats, whole grain breads Fruits: All fruits (fresh and dried), raisins, prunes, apricots, berries, figs Vegetables: Any fresh vegetables, especially peas, broccoli, brussels sprouts, winter squash, green beans, cauliflower, woodall beans, carrots Other: Popcorn, brown rice Drink plenty of water when you increase the amount of fiber you eat. Follow Up with your doctor or return to this facility if symptoms do not improve in the next few days. You may require further tests or a referral to a specialist. Get Prompt Medical Attention if any of the following occur: Fever over 100.4F (38C) Failure to resume normal bowel movements Increasing abdominal or back pain Nausea or vomiting Abdominal swelling Blood in the stool Weakness, dizziness or fainting Unexpected vaginal bleeding High Fiber Diet Fiber is present in all fruits, vegetables, cereals and grains. Fiber passes through the body undigested. A high fiber diet helps food move through the intestinal tract. The added bulk is helpful in preventing constipation. In people with diverticulosis it serves to clean out the pouches along the colon wall while preventing new ones from forming. A high fiber diet also reduces the risk of colon cancer, decreases blood cholesterol and prevents high blood sugar in people with diabetes. The foods listed below are high in fiber and should be included in your diet. If you are not used to high fiber foods, start with 1 or 2 foods from this list. Every 3-4 days add a new one to your diet until you are eating 4 high fiber foods per day. This should give you 20-35 Gm of fiber/day. It is also important to drink a lot of water when you are on this diet (6-8 glasses a day). Water causes the fiber to swell and increases the benefit. Foods High In Dietary Fiber: BREADS: Made with 100% whole wheat flour; rita, wheat or rye crackers; tortillas, bran muffins CEREALS: Whole grain cereal with bran (Chex, Raisin Bran, [place] Bran), oatmeal, rolled oats, granola, wheat flakes, brown rice NUTS: Any nuts FRUITS: All fresh fruits along with edible skins, (bananas, citrus fruit, mangoes, pears, prunes, raisins, apples, pineapple, apricot, melon, jams and marmalades), fruit juices (especially prune juice) VEGETABLES: All types, preferably raw or lightly cooked: especially, celery, eggplant, potatoes,spinach, broccoli, brussel sprouts, winter squash, carrots, cauliflower, soybeans, lentils, fresh and dried beans of all kinds OTHER: Popcorn, any spices Ondansetron Oral disintegrating tablet What is this medicine? ONDANSETRON (on KAYLIN se merlene) is used to treat nausea and vomiting caused by chemotherapy. It is also used to prevent or treat nausea and vomiting after surgery. How should I use this medicine? These tablets are made to dissolve in the mouth. Do not try to push the tablet through the foil backing. With dry hands, peel away the foil backing and gently remove the tablet. Place the tablet in the mouth and allow it to dissolve, then swallow. While you may take these tablets with water, it is not necessary to do so. Talk to your pyrometer temperature regulator regarding the use of this medicine in children. Special care may be needed. What side effects may I notice from receiving this medicine? Side effects that you should report to your doctor or health career development director as soon as possible: allergic reactions like skin rash, itching or hives, swelling of the face, lips, or tongue breathing problems dizziness fast or irregular heartbeat feeling faint or lightheaded, falls fever and chills swelling of the hands and feet tightness in the chest Side effects that usually do not require medical attention (report to your doctor or health career development director if they continue or are bothersome): constipation or diarrhea headache What may interact with this medicine? Do not take this medicine with any of the following medications: -apomorphine -cisapride -dofetilide -dronedarone -pimozide -thioridazine -ziprasidone This medicine may also interact with the following medications: -carbamazepine -phenytoin -rifampicin -tramadol -other medicines that prolong the QT interval (cause an abnormal heart rhythm) What if I miss a dose? If you miss a dose, take it as soon as you can. If it is almost time for your next dose, take only that dose. Do not take double or extra doses. Where should I keep my medicine? Keep out of the reach of children. Store between 2 and 30 degrees C (36 and 86 degrees F). Throw away any unused medicine after the expiration date. What should I tell my health care provider before I take this medicine? They need to know if you have any of these conditions: heart disease history of irregular heartbeat liver disease low levels of magnesium or potassium in the blood an unusual or allergic reaction to ondansetron, granisetron, other medicines, foods, dyes, or preservatives or trying to get breast-feeding What should I watch for while using this medicine? Check with your doctor or health career development director as soon as you can if you have any sign of an allergic reaction. Dicyclomine Hydrochloride Oral tablet What is this medicine? DICYCLOMINE (dye SYE kloe meen) is used to treat bowel problems including irritable bowel syndrome. How should I use this medicine? Take this medicine by mouth with a glass of water. Follow the directions on the prescription label. It is best to take this medicine on an empty stomach, 30 minutes to 1 hour before meals. Take your medicine at regular intervals. Do not take your medicine more often than directed. Talk to your pyrometer temperature regulator regarding the use of this medicine in children. Special care may be needed. While this drug may be prescribed for children as young as 6 months of age for selected conditions, precautions do apply. Patients over 65 years old may have a stronger reaction and need a smaller dose. What side effects may I notice from receiving this medicine? Side effects that you should report to your doctor or health career development director as soon as possible: agitation, nervousness, confusion difficulty swallowing dizziness, drowsiness fast or slow heartbeat hallucinations pain or difficulty passing urine Side effects that usually do not require medical attention (report to your doctor or health career development director if they continue or are bothersome): constipation headache nausea or vomiting sexual difficulty What may interact with this medicine? amantadine antacids benztropine digoxin disopyramide medicines for allergies, colds and breathing difficulties medicines for alzheimer's disease medicines for anxiety or sleeping problems medicines for depression or psychotic disturbances medicines for diarrhea medicines for pain metoclopramide tegaserod What if I miss a dose? If you miss a dose, take it as soon as you can. If it is almost time for your next dose, take only that dose. Do not take double or extra doses. Where should I keep my medicine? Keep out of the reach of children. Store at room temperature below 30 degrees C (86 degrees F). Protect from light. Throw away any unused medicine after the expiration date. What should I tell my health care provider before I take this medicine? They need to know if you have any of these conditions: difficulty passing urine esophagus problems or heartburn glaucoma heart disease, or previous heart attack myasthenia gravis prostate trouble stomach infection, or obstruction ulcerative colitis an unusual or allergic reaction to dicyclomine, other medicines, foods, dyes, or preservatives or trying to get breast-feeding What should I watch for while using this medicine? You may get drowsy, dizzy, or have blurred vision. Do not drive, use machinery, or do anything that needs mental alertness until you know how this medicine affects you. To reduce the risk of dizzy or fainting spells, do not sit or stand up quickly, especially if you are an older patient. Alcohol can make you more drowsy, avoid alcoholic drinks. Stay out of bright light and wear sunglasses if this medicine makes your eyes more sensitive to light. Avoid extreme heat (hot tubs, saunas). This medicine can cause you to sweat less than normal. Your body temperature could increase to dangerous levels, which may lead to heat stroke. Antacids can stop this medicine from working. If you get an upset stomach and want to take an antacid, make sure there is an interval of at least 1 to 2 hours before or after you take this medicine. Your mouth may get dry. Chewing sugarless gum or sucking hard candy, and drinking plenty of water may help. Contact your doctor if the problem does not go away or is severe. You have been given the following additional information: Abdominal Pain, Unknown Cause, (Male) Abdominal Pain, Possible Appendicitis [Male] Vomiting (6Y-Adult) Constipation (Adult) Diet, High Fiber Ondansetron Oral disintegrating tablet Dicyclomine Hydrochloride Oral tablet (Electronically signed by Lia Chris A.R.N.P. 12/10/2016 18:52)
--- NOTE | 2016-12-10 18:52 | ED MAR SUMMARY ---
..... Medication Administration Record [facility] [address] [place] [address] Patient: MALATHI LOGAN Visit ID: [id number] 86y, M Weight: 104.3 kg Height/Length: 66 in BMI: 37.1 ALLERGIES: No Known Drug Allergy Start 14:12/10/2016 Camille Corcoran,, Stop 15:12/10/2016 Camille Corcoran, Medication Administered: IV NS (SALINE), Dose: IV Fluids over 1 hour(s), Rate: 1000 mL/hr, Dispensed: 1000 mL bag, Site: #1 right AC. Medication Ordered: IV NS : initial bolus 1000 mL (1000 mL/hr), then none - (NOW). Given 14:12 12/10/2016 Camille Corcoran, Medication Administered: TORADOL [IVP], Dose: 30 mg IVP over 1 minute(s), Site: #1 right AC. Medication Ordered: Toradol IV 30 mg (NOW). Given 14:14 12/10/2016 Camille Corcoran, Medication Administered: ZOFRAN [IVP] (ONDANSETRON HCL), Dose: 4 mg IVP over 30 second(s), Site: #1 right AC. Medication Ordered: Zofran IV 4 mg (NOW). Given 14:12/10/2016 Camille Corcoran, Medication Administered: DILAUDID [IVP] (HYDROMORPHONE HCL PF), Dose: 1 mg IVP over 30 second(s), Site: #1 right AC. Medication Ordered: Dilaudid IV 1 mg (HIGH ALERT MEDICATION, NOW).
--- NOTE | 2016-12-10 18:52 | ED MED RECONCILIATION SUMMARY ---
Patient: MALATHI LOGAN Medication Reconciliation Report [facility] VisitID: [id number] [place] [address] 86y, M Registration Date/Time: 12/10/2016 Weight: 104.3 kg Height/Length: 66 in. BMI: 37.1 ALLERGIES: No Known Drug Allergy The patient's Home Medications are listed below: THE FOLLOWING MEDICATIONS NEED TO BE RECONCILED: AmLODIPine Besylate Oral 5 mg Aspir-81 Oral 1/2 tab Centrum Silver Ultra Mens Oral Glucosamine Chondroitin Plus Oral Lisinopril Oral 20 mg, daily MetFORMIN HCl Oral 500 mg, 2x a day Rosuvastatin Calcium Oral 20 mg Sodium Bicarbonate Oral (650 mg) 2 tablets, daily Stool Softener Oral Vitamin D3 Oral The source(s) of the original Home Medication information: patient The following Medications were given to the patient in the Emergency Department: IV NS IV Fluids bolus 0, then 1000 mL/hr, administered: 12/10/2016 2:10:00 PM Toradol [IVP] IVP 30 mg, administered: 12/10/2016 2:12:00 PM Zofran [IVP] IVP 4 mg, administered: 12/10/2016 2:14:00 PM Dilaudid [IVP] IVP 1 mg, administered: 12/10/2016 2:34:00 PM The following Medications were prescribed to the patient: Zofran 4 mg: Take 1 orally every six hours as needed for nausea/vomiting. Dispense ten (10). No refills. Substitution is permissible. -- iLa Chris A.R.N.P. Bentyl 20 mg tablets: take 1 orally every 6 hours as needed. Dispense thirty (30). No refills. Substitution is permissible. -- Lia Chris A.R.N.P. Miralax: take 1 measuring cupful supplied (1 heaping tablespoon) mixed in 8 ounces liquid daily as needed for constipation. Dispense fourteen (14) ounce bottle. No refill. Substitution is permissible. -- Lia Chris A.R.N.P.
--- NOTE | 2016-12-10 18:52 | ED MAR SUMMARY ---
..... Medication Administration Record [facility] [address] [place] [address] Patient: MALATHI LOGAN Visit ID: [id number] 86y, M Weight: 104.3 kg Height/Length: 66 in BMI: 37.1 ALLERGIES: No Known Drug Allergy Start 14:12/10/2016 Camille Corcoran,, Stop 15:12/10/2016 Camille Corcoran, Medication Administered: IV NS (SALINE), Dose: IV Fluids over 1 hour(s), Rate: 1000 mL/hr, Dispensed: 1000 mL bag, Site: #1 right AC. Medication Ordered: IV NS : initial bolus 1000 mL (1000 mL/hr), then none - (NOW). Given 14:12 12/10/2016 Camille Corcoran, Medication Administered: TORADOL [IVP], Dose: 30 mg IVP over 1 minute(s), Site: #1 right AC. Medication Ordered: Toradol IV 30 mg (NOW). Given 14:14 12/10/2016 Camille Corcoran, Medication Administered: ZOFRAN [IVP] (ONDANSETRON HCL), Dose: 4 mg IVP over 30 second(s), Site: #1 right AC. Medication Ordered: Zofran IV 4 mg (NOW). Given 14:12/10/2016 Camille Corcoran, Medication Administered: DILAUDID [IVP] (HYDROMORPHONE HCL PF), Dose: 1 mg IVP over 30 second(s), Site: #1 right AC. Medication Ordered: Dilaudid IV 1 mg (HIGH ALERT MEDICATION, NOW).
--- NOTE | 2016-12-10 18:52 | ED MED RECONCILIATION SUMMARY ---
Patient: MALATHI LOGAN Medication Reconciliation Report [facility] VisitID: [id number] [place] [address] 86y, M Registration Date/Time: 12/10/2016 Weight: 104.3 kg Height/Length: 66 in. BMI: 37.1 ALLERGIES: No Known Drug Allergy The patient's Home Medications are listed below: THE FOLLOWING MEDICATIONS NEED TO BE RECONCILED: AmLODIPine Besylate Oral 5 mg Aspir-81 Oral 1/2 tab Centrum Silver Ultra Mens Oral Glucosamine Chondroitin Plus Oral Lisinopril Oral 20 mg, daily MetFORMIN HCl Oral 500 mg, 2x a day Rosuvastatin Calcium Oral 20 mg Sodium Bicarbonate Oral (650 mg) 2 tablets, daily Stool Softener Oral Vitamin D3 Oral The source(s) of the original Home Medication information: patient The following Medications were given to the patient in the Emergency Department: IV NS IV Fluids bolus 0, then 1000 mL/hr, administered: 12/10/2016 2:10:00 PM Toradol [IVP] IVP 30 mg, administered: 12/10/2016 2:12:00 PM Zofran [IVP] IVP 4 mg, administered: 12/10/2016 2:14:00 PM Dilaudid [IVP] IVP 1 mg, administered: 12/10/2016 2:34:00 PM The following Medications were prescribed to the patient: Zofran 4 mg: Take 1 orally every six hours as needed for nausea/vomiting. Dispense ten (10). No refills. Substitution is permissible. -- Lia Chris A.R.N.P. Bentyl 20 mg tablets: take 1 orally every 6 hours as needed. Dispense thirty (30). No refills. Substitution is permissible. -- Lia Chris A.R.N.P. Miralax: take 1 measuring cupful supplied (1 heaping tablespoon) mixed in 8 ounces liquid daily as needed for constipation. Dispense fourteen (14) ounce bottle. No refill. Substitution is permissible. -- Lia Chris A.R.N.P.
== END 2016-12-10 16:48 | disposition home or self-care (01) ==
LOC: ED SRH 13:14
DX: K59.00 Constipation, unspecified (principal); R10.84 Generalized abdominal pain; R11.2 Nausea with vomiting, unspecified; E78.00 Pure hypercholesterolemia, unspecified; E11.9 Type 2 diabetes mellitus without complications; Z79.84 Long term (current) use of oral hypoglycemic drugs; Z79.82 Long term (current) use of aspirin; Z79.899 Other long term (current) drug therapy
CPT/HCPCS: 90004; 90100; 92235; 92530; 95059